=== PATIENT | male | born 1945 | race Caucasian/White ===

== ENCOUNTER 2022-05-06 19:37 | Inpatient (IN) | payer MEDICARE, SELFPAY ==
--- NOTE | 2022-05-06 19:42 | XRR_ITS ---
PROCEDURE INFORMATION: Exam: XR Chest Exam date and time: 05/06/2022 7:50 PM Age: 76 years old Clinical indication: Shortness of breath; Additional info: SOB TECHNIQUE: Imaging protocol: Radiologic exam of the chest. Views: 1 view. COMPARISON: No relevant prior studies available. FINDINGS: Lungs: Left lower lobe atelectasis versus minimal infiltrate. Pleural spaces: Unremarkable. No pleural effusion. No pneumothorax. Heart/Mediastinum: Unremarkable. No cardiomegaly. Bones/joints: Unremarkable. XR/XR chest 1V portable [id number] IMPRESSION: Left lower lobe atelectasis versus minimal infiltrate.
[2022-05-06 19:43] VITALS: BP 94/75; PULSE 162; RESP 29; TEMP 39.3; O2SAT 95; BMI 23.6
--- NOTE | 2022-05-06 19:43 | ECG_ITS ---
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 Measurements Intervals [place] Rate: 157 P: [place]: QRS: -56 QRSD: 106 T: 54 QT: 265 QTc: 429 Interpretive Statements ATRIAL FIBRILLATION WITH RAPID VENTRICULAR RESPONSE LEFT AXIS DEVIATION [QRS AXIS < -30] NONSPECIFIC ST & T-WAVE ABNORMALITY No previous ECG available for comparison Electronically Signed On 05-07-2022 16:26:19 CDT by Magaly Fuentes M.D. [email or web address]/[email or web address]/NU/[id number] f
--- NOTE | 2022-05-06 19:44 | W.ED.SOB ---
HPI - SOB/Dyspnea General: Chief Complaint: Arrhythmia/Palpitations Stated Complaint: AFIB WITH RVR Time Seen by Provider: 05/06/22 19:42 Source: patient and EMS Mode of arrival: EMS Limitations: no limitations History of Present Illness: HPI Narrative: 76-year-old male comes by EMS. Per EMS patient's been feeling ill over the last 2 days has had extreme shortness of breath they are called and they arrived patient was febrile hypotensive and respiratory distress. Per EMS patient's pulse ox originally was in the 50s heart rate was in the 160s they have given him 20 mg of Cardizem. Patient's here tachypneic and shortness of breath. Patient is able to answer some of my questions but is quite dyspneic and only able to respond 1-2 word sentences. Associated symptoms: Reports fever(s) and palpitations; Deny abdominal pain, nausea or vomiting Review of Systems Const: Reports: fever(s) and chills Eyes: Denies: blurry vision or eye discomfort ENMT: Denies: throat pain or dental pain Card: Reports: palpitations and irregular heart rhythm Resp: Reports: dyspnea and non-productive cough GI: Denies: abdominal pain, nausea, vomiting or diarrhea : Denies: dysuria Musc: Denies: neck pain or back pain Skin/Breast: Denies: rash Neuro: Denies: headache(s) Psych: Denies: depression [place]/Lymph: Denies: easy bruising All/Imm: Denies: urticaria PFSH ED PFSH: Medical History (Updated 05/06/22 @ 19:45 by Erickson Almanza MD) No pertinent past medical history Social History (Updated 05/06/22 @ 19:45 by Erickson Almanza MD) Substance/Drug Use: never Physical Exam Const: COMMON NORMALS: patient oriented x3 GENERAL APPEARANCE: in distress and ill appearing HENMT: COMMON NORMALS: normocephalic and atraumatic HEAD & SCALP: normocephalic and atraumatic Eye: COMMON NORMALS: Equal, round and reactive pupils present and EOMs intact bilaterally PUPIL: Yes Equal, round and reactive pupils present Neck/C-Spine: COMMON NORMALS: full ROM and supple Chest: COMMONS NORMALS: normal inspection of the chest and normal palpation of entire chest wall Resp: EFFORT & INSPECTION: Yes tachypneic, Yes respiratory distress and Yes labored Cardio: COMMON NORMALS: No murmurs present (Cardio) RATE: tachycardic RHYTHM: abnormal rhythm irregularly irregular GI: COMMON NORMALS: Normal to inspection, nondistended, normoactive bowel sounds present, Soft to palpation, non-tender and no masses PALPATION: Yes Soft to palpation Extremity: COMMON NORMALS: normal to inspection and full ROM Neuro: COMMON NORMALS: patient oriented x3, moves all extremities and no focal motor deficits Psych: COMMON NORMALS: mental status grossly normal, Normal thought process present and cooperative THOUGHT PROCESS: Normal thought process present Skin: COMMON NORMALS: no rashes or lesions noted and no wounds GENERAL SKIN EXAM: no rashes or lesions noted Course Vital Signs: Vital signs: Vital Signs Temperature 102.8 F H 05/06/22 20:03 Pulse Rate 130 H 05/06/22 20:55 Respiratory Rate 28 H 05/06/22 20:55 Blood Pressure 131/92 05/06/22 20:55 Pulse Oximetry 98 05/06/22 20:55 Oxygen Delivery Me thod 05/06/22 20:55 Fraction of Inspir ed Oxygen 100 05/06/22 20:03 MDM - SOB/Dyspnea Medical Decision Making Patient presents here after being found down at home likely from a pneumonia he is septic from his pneumonia has rhabdomyolysis likely from being down. Patient's blood pressure here is improved with IV fluids did start him on antibiotics spoke to hospitalist will admit to ICU. Lab Data : 05/06/22 19:53 05/06/22 21:13 Labs/Radiology: Radiology Impressions Chest X-Ray 05/06/22 19:42 IMPRESSION: Left lower lobe atelectasis versus minimal infiltrate. Head CT 05/06/22 20:11 IMPRESSION: 1. Negative for intracranial hemorrhage or mass effect. 2. Mild diffuse white matter disease likely reflecting chronic microvascular ischemic changes. 3. Right occipital chronic infarct. Laboratory Results WBC 14.4 10^3/uL (4.0-10.0) H 05/06/22 19:53 RBC 3.51 10^6/uL (4.1-5.3) L 05/06/22 19:53 Hgb 12.1 g/dL (11.7-16.6) 05/06/22 19:53 Hct 39.0 % (42.0-52.0) L 05/06/22 19:53 MCV 111.1 fl (80-94) H 05/06/22 19:53 MCH 34.5 pg (28.0-34.0) H 05/06/22 19:53 MCHC 31.0 g/dL (30.0-36.0) 05/06/22 19:53 RDW 14.1 % (12.1-15.1) 05/06/22 19:53 Plt Count 122 10^3/cmm (130-400) L 05/06/22 19:53 MPV 10.9 fL (7.4-10.4) H 05/06/22 19:53 Lymph % (Auto) Not Reportable 05/06/22 19:53 [place] % (Auto) Not Reportable 05/06/22 19:53 Lymph # (Auto) Not Reportable 05/06/22 19:53 [place] # (Auto) Not Reportable 05/06/22 19:53 Total Counted 100 (0-100) 05/06/22 19:53 Atypical Lymphs % 0.0 % (0-5) 05/06/22 19:53 Absolute Neutrophils 12.4 10^3/cmm (1.4-6.5) H 05/06/22 19:53 Segmented Neutrophils 69 % 05/06/22 19:53 Abs Segm Neuts (Man) 9.9 10/cmm (1.6-7.1) H 05/06/22 19:53 Band Neutrophils 17.0 % 05/06/22 19:53 Abs Band Neuts (Man) 2.4 10^3/cmm (0.0-1.2) H 05/06/22 19:53 Absolute Lymphocytes 1.3 10^3/cmm (1.2-3.4) 05/06/22 19:53 Lymphocytes (Manual) 9 % 05/06/22 19:53 Monocytes (Manual) 1.0 % 05/06/22 19:53 Absolute Monocytes 0.1 10^3/cmm (0.1-0.6) 05/06/22 19:53 Eosinophils (Manual) 0 % 05/06/22 19:53 Absolute Eosinophils 0.0 10^3/cmm (0.0-0.7) 05/06/22 19:53 Basophils (Manual) 0.0 % 05/06/22 19:53 Absolute Basophils 0.0 10^3/cmm (0.0-0.2) 05/06/22 19:53 Metamyelocytes 4.0 % 05/06/22 19:53 Toxic Vacuolation 2+ H 05/06/22 19:53 Platelet Estimate Decreased (Normal) 05/06/22 19:53 Giant Platelets 1+ H 05/06/22 19:53 Anisocytosis 1+ H 05/06/22 19:53 Macrocytosis 2+ H 05/06/22 19:53 PT 20.00 SECONDS (12.1-14.9) H 05/06/22 19:53 INR 1.67 (0.8-1.2) H 05/06/22 19:53 Specimen Type Arterial 05/06/22 19:48 Sample Site Brachial, right 05/06/22 19:48 ABG pH 7.32 (7.35-7.45) L 05/06/22 19:48 ABG pCO2 25.8 mmHg (35-45) L 05/06/22 19:48 ABG pO2 137.0 mmHg (80.0-100.0) H 05/06/22 19:48 ABG HCO3 13.2 mmol/L (22-26) L 05/06/22 19:48 ABG Base Excess -11.4 mmol/L (-2.0-2.0) L 05/06/22 19:48 Taiwo Test Pos 05/06/22 19:48 Hematocrit 38.0 % (42-52) L 05/06/22 19:48 O2 Delivery Device Nrb 05/06/22 19:48 O2 Liters/Min 15.0 % 05/06/22 19:48 Plastic Press Operator ID [place] 05/06/22 19:48 Sodium Cancelled 05/06/22 19:53 Potassium Cancelled 05/06/22 19:53 Chloride Cancelled 05/06/22 19:53 Carbon Dioxide Cancelled 05/06/22 19:53 Anion Gap Cancelled 05/06/22 19:53 BUN Cancelled 05/06/22 19:53 Creatinine Cancelled 05/06/22 19:53 GFR Calculation Cancelled 05/06/22 19:53 Glucose Cancelled 05/06/22 19:53 Calculated Osmolality Cancelled 05/06/22 19:53 Lactic Acid 11.3 mmol/L (0.5-2.2) H* 05/06/22 19:53 Calcium Cancelled 05/06/22 19:53 Total Bilirubin Cancelled 05/06/22 19:53 AST Cancelled 05/06/22 19:53 ALT Cancelled 05/06/22 19:53 Alkaline Phosphatase Cancelled 05/06/22 19:53 Creatine Kinase 9953 U/L (39-308) H* 05/06/22 19:53 Troponin T Baseline 68 ng/L (0-15) H 05/06/22 19:53 Troponin T 120 Minute 77.65 ng/L (0-15) H 05/06/22 21:13 Delta Troponin T 9.65 ABS# (0-10) 05/06/22 21:13 NT-Pro-B Natriuret Pep Cancelled 05/06/22 19:53 Total Protein Cancelled 05/06/22 19:53 Albumin Cancelled 05/06/22 19:53 Globulin Cancelled 05/06/22 19:53 Urine Color [place] (Yellow) 05/06/22 20:00 Urine Appearance Cloudy (CLEAR) 05/06/22 20:00 Urine pH 5 (5-7) 05/06/22 20:00 Ur Specific [place] 1.025 (1.005-1.030) 05/06/22 20:00 Urine Protein 2+ (Negative) H 05/06/22 20:00 Urine Glucose (UA) Norm (Normal) 05/06/22 20:00 Urine Ketones Negative (Negative) 05/06/22 20:00 Urine Blood 3+ (Negative) H 05/06/22 20:00 Urine Nitrate Negative (Negative) 05/06/22 20:00 Urine Bilirubin 1+ (Negative) H 05/06/22 20:00 Urine Urobilinogen 4 mg/dL (Negative) H 05/06/22 20:00 Ur Leukocyte Esterase Negative (Negative) 05/06/22 20:00 Urine RBC 10-15 /hpf (0-2) H 05/06/22 20:00 Urine WBC 0-4 /hpf (0-5) H 05/06/22 20:00 Ur Squamous Epith Cells 0-4 /hpf (0-5) H 05/06/22 20:00 Ur Renal Epithelial Cell 0-2 /hpf 05/06/22 20:00 Amorphous Sediment 3+ /hpf 05/06/22 20:00 Urine Bacteria None /hpf (NONE) 05/06/22 20:00 Fine Granular Casts 0-4 /lpf H 05/06/22 20:00 SARS-CoV-2 Ag (Rapid) Negative (Negative) 05/06/22 19:50 EKG Data EKG 1: I personally reviewed and interpreted this EKG as follows: EKG Interpretation Date: 05/06/22 EKG interpretation time: 19:41 Interpretation: afib with rvr hr [address] or t wave abnrmalities qrs 106 qtc 353 Critical Care Time Critical Care Time: Critical Care Time: Yes Total Critical Care Time: 40 Attestation: The high probability of a clinically significant, sudden or life threatening deterioration of the patient's resp system(s) required my full and direct attention, intervention and personal management. The critical care time is as shown. This time is in addition to time spent performing any reported procedures but includes the following: [x] Data and vital sign review and interpretation [x] Patient assessment, examination and intervention [x] Documentation [x] Medication orders and management Discharge Plan Discharge Patient Disposition: Admitted As Inpatient Admit Provider: Louie Galicia Coding Level of Care Code ED Night Time Nanny for Chg Fwd Exam Comprehensive
[2022-05-06 19:59] LABS: ABG PCO2 25.8 mmHg (35-45); ABG PH Result 7.32 (7.35-7.45); Base Excess ABG -11.4 mmol/L (-2.0-2.0); Blood Gas Allen Test Pos; Blood Gas Operator Identificat WALCI; Blood Gas Sample Site Brachial, right; Blood Gas Sample Type Arterial; HCO3 ABG 13.2 mmol/L (22-26); Oxygen Device NRB
[2022-05-06] MEDS: acetaminophen 650 mg Supp PR (19:59)
[2022-05-06] MEDS: piperacillin-tazobactam 3.375 GM in sodium chloride 0.9% (plus) 50 ML IV (20:00)
[2022-05-06 20:03] VITALS: BP 94/75; PULSE 162; RESP 29; RESP 43; TEMP 39.3; O2SAT 100; O2SAT 95
[2022-05-06 20:10] LABS: Hemoglobin 12.1 g/dL (11.7-16.6); Mean Corpuscular Hemoglobin 34.5 pg (28.0-34.0); Mean Corpuscular Volume 111.1 fl (80-94); Mean Platelet Volume 10.9 fL (7.4-10.4); Platelet Count 122 10^3/cmm (130-400); Positive C 1; Positive M 1; Red Blood Count 3.51 10^6/uL (4.1-5.3); Red Cell Distribution Width 14.1 % (12.1-15.1); White Blood Count 14.4 10^3/uL (4.0-10.0)
--- NOTE | 2022-05-06 20:11 | CTR_ITS ---
PROCEDURE INFORMATION: Exam: CT Head Without Contrast Exam date and time: 05/06/2022 8:30 PM Age: 76 years old Clinical indication: Altered mental status/memory loss; Patient HX: Patient found unresponsive by family. Patient in afib with rvr and very hypoxic. Acting confused. On bipap. ; Additional info: AMS TECHNIQUE: Imaging protocol: Computed tomography of the head without contrast. Radiation optimization: All CT scans at this facility use at least one of these dose optimization techniques: automated exposure control; mA and/or kV adjustment per patient size (includes targeted exams where dose is matched to clinical indication); or iterative reconstruction. COMPARISON: No relevant prior studies available. RADIATION DOSE METRICS: Total DLP (mGy-cm): 1526.08 FINDINGS: Brain: Mild diffuse white matter disease likely reflecting chronic microvascular ischemic changes. Right occipital chronic infarct. Cerebral ventricles: No ventriculomegaly. Paranasal sinuses: Visualized sinuses are unremarkable. No fluid levels. Mastoid air cells: Visualized mastoid air cells are well aerated. Bones/joints: Unremarkable. No acute fracture. Soft tissues: Unremarkable. CT/CT head wo con* [id number] IMPRESSION: 1. Negative for intracranial hemorrhage or mass effect. 2. Mild diffuse white matter disease likely reflecting chronic microvascular ischemic changes. 3. Right occipital chronic infarct.
[2022-05-06] MEDS: vancomycin 1,000 MG in sodium chloride 0.9% 250 ML 250 MG IV (20:12)
[2022-05-06] MEDS: lactated ringers 1,000 ML 999 ML IV ×3 (20:13→23:37)
[2022-05-06 20:18] LABS: SARS Covid-2 Antigen Negative (Negative)
[2022-05-06 20:20] LABS: INR 1.67 (0.8-1.2)
[2022-05-06 20:31] LABS: Bilirubin Urine 1+ (Negative); Blood Urine 3+ (Negative); Glucose Urine UA Norm (Normal); Ketones Urine Negative (Negative); Leukocyte Esterase Urine Negative (Negative); Nitrate Urine Negative (Negative); Protein Urine 2+ (Negative); Specific Gravity, Urine 1.025 (1.005-1.030); Urine Appearance Cloudy (CLEAR); Urine Color Orange (Yellow); Urobilinogen Urine 4 mg/dL (Negative); pH Urine 5 (5-7)
[2022-05-06 20:32] LABS: Add Urine Microscopic? YES
[2022-05-06 20:33] LABS: Renal Epithelial Cells Urine 0-2 /hpf; Squamous Epithelial Cell Urine 0-4 /hpf (0-5); WBC Urine 0-4 /hpf (0-5)
[2022-05-06 20:34] LABS: Amorphous Sediment Urine 3+ /hpf
[2022-05-06 20:35] LABS: Fine Granular Casts Urine 0-4 /lpf
[2022-05-06 20:37] LABS: Lactic Sepsis W/Reflex 11.3 mmol/L (0.5-2.2)
[2022-05-06 20:55] VITALS: BP 131/92; PULSE 130; RESP 28; O2SAT 98
[2022-05-06 20:56] LABS: Absolute Segmented Neutrophil 9.9 10/cmm (1.6-7.1); Band Neutrophils Absolute 2.4 10^3/cmm (0.0-1.2); Lymphocytes 9 %; Monocytes Absolute 0.1 10^3/cmm (0.1-0.6); Segmented Neutrophils 69 %; Total Cells Counted 100 (0-100)
[2022-05-06 20:57] LABS: Anisocytosis 1+; Macrocytosis 2+
[2022-05-06 20:59] LABS: Absolute Neutrophil 12.4 10^3/cmm (1.4-6.5)
[2022-05-06 21:01] LABS: Eosinophils 0 %; Giant Platelets 1+; Lymphocytes Absolute 1.3 10^3/cmm (1.2-3.4); Toxic Vacuolation 2+
[2022-05-06 21:02] LABS: Platelet Estimate Decreased (Normal)
--- NOTE | 2022-05-06 21:26 | ECG_ITS ---
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 Measurements Intervals [place] Rate: 155 P: [place]: QRS: -70 QRSD: 102 T: 59 QT: 310 QTc: 499 Interpretive Statements ATRIAL FIBRILLATION WITH RAPID VENTRICULAR RESPONSE LEFT AXIS DEVIATION [QRS AXIS < -30] LOW QRS VOLTAGE IN EXTREMITY LEADS No previous ECG available for comparison Electronically Signed On 05-07-2022 16:33:52 CDT by Magaly Fuentes M.D. [id number]
[2022-05-06 21:27] LABS: Troponin(5th) Baseline 68 ng/L (0-15)
[2022-05-06 21:41] LABS: Troponin 5 2HR 77.65 ng/L (0-15); Troponin 5 2HR Delta 9.65 ABS# (0-10)
[2022-05-06 21:47] LABS: Alanine Aminotransferase 155 U/L (0-41); Albumin Level 2.5 g/dL (3.5-5.2); Alkaline Phosphatase 238 U/L (40-130); Anion Gap 28.9 (5-19); Aspartate Amino Transferase 443 U/L (0-40); Blood Urea Nitrogen 41 mg/dL (8-23); Calcium 7.6 mg/dL (8.5-10.5); Carbon Dioxide 13 mmol/L (22-29); Chloride 105 mmol/L (98-107); Globulin 2.5 g/dL (1.3-4.6); Glucose 67 mg/dL (65-115); Osmolality Calculated 304 mOsm/kg (285-295); Potassium 3.9 mmol/L (3.5-5.1); Sodium 143 mmol/L (136-145); Total Bilirubin 1.3 mg/dL (0.15-1.2)
[2022-05-06 21:51] LABS: Reflex Lactate Order REFLEX LACTIC ORDERD
[2022-05-06 21:55] LABS: NT Pro B Type Natriuretic Pept 44685 pg/mL (0-450)
[2022-05-06 21:57] LABS: Creatine Phosphokinase 9953 U/L (39-308)
[2022-05-06 22:03] VITALS: BP 140/71; PULSE 135; RESP 24; O2SAT 97
--- NOTE | 2022-05-06 22:27 | CTR_ITS ---
PROCEDURE INFORMATION: Exam: CT Chest Without Contrast; Diagnostic Exam date and time: 05/06/2022 11:15 PM Age: 76 years old Clinical indication: Abnormal findings; Other: N/a; Shortness of breath; Patient HX: Lethargy with SOB and hypoxia requiring bipap. Multiple abnormal lab tests with elevated wbc. Lactic acid of 11.3, ck of 9953, and bnp of 44k. TECHNIQUE: Imaging protocol: Diagnostic computed tomography of the chest without contrast. Radiation optimization: All CT scans at this facility use at least one of these dose optimization techniques: automated exposure control; mA and/or kV adjustment per patient size (includes targeted exams where dose is matched to clinical indication); or iterative reconstruction. COMPARISON: CR (CHEST, ) 05/06/2022 7:50 PM RADIATION DOSE METRICS: Total DLP (mGy-cm): 1236.95 FINDINGS: Lungs: Bibasilar atelectasis versus infiltrate. Pleural spaces: Unremarkable. No pneumothorax. No pleural effusion. Heart: Unremarkable. No cardiomegaly. No pericardial effusion. Lymph nodes: Unremarkable. No enlarged lymph nodes. Vasculature: Unremarkable. No aortic aneurysm. Bones/joints: Unremarkable. No acute fracture. Soft tissues: Unremarkable. PROCEDURE INFORMATION: Exam: CT Abdomen And Pelvis Without Contrast Exam date and time: 05/06/2022 11:15 PM Age: 76 years old Clinical indication: Abnormal findings; Other: N/a; Shortness of breath; Patient HX: Lethargy with SOB and hypoxia requiring bipap. Multiple abnormal lab tests with elevated wbc. Lactic acid of 11.3, ck of 9953, and bnp of 44k. TECHNIQUE: Imaging protocol: Computed tomography of the abdomen and pelvis without contrast. Radiation optimization: All CT scans at this facility use at least one of these dose optimization techniques: automated exposure control; mA and/or kV adjustment per patient size (includes targeted exams where dose is matched to clinical indication); or iterative reconstruction. COMPARISON: CR (CHEST, ) 05/06/2022 7:50 PM RADIATION DOSE METRICS: Total DLP (mGy-cm): 1236.95 FINDINGS: Liver: Normal. No mass. Gallbladder and bile ducts: Normal. No calcified stones. No ductal dilation. Pancreas: Normal. No ductal dilation. Spleen: Normal. No splenomegaly. Adrenal glands: Normal. No mass. Kidneys and ureters: Perinephric edema bilaterally may reflect chronic renal insufficiency, pyelonephritis may also be a consideration depending on the clinical scenario. Stomach and bowel: Diverticulosis without diverticulitis. Appendix: No evidence of appendicitis. Intraperitoneal space: Unremarkable. No free air. No significant fluid collection. Vasculature: Unremarkable. No abdominal aortic aneurysm. Lymph nodes: Unremarkable. No enlarged lymph nodes. Urinary bladder: Carlton catheter in the urinary bladder with air presumed iatrogenic. Reproductive: Unremarkable as visualized. Bones/joints: Unremarkable. No acute fracture. Soft tissues: Unremarkable. CT/[place] [id number] IMPRESSION: Bibasilar atelectasis versus infiltrate. IMPRESSION: 1. Perinephric edema bilaterally may reflect chronic renal insufficiency, pyelonephritis may also be a consideration depending on the clinical scenario. 2. Diverticulosis without diverticulitis. 3. Carlton catheter in the urinary bladder with air presumed iatrogenic.
--- NOTE | 2022-05-06 22:57 | PM.HP ---
Providers/Chief Complaint Admitting Physician: Louie Galicia MD Chief Complaint: AFIB WITH RVR History of Present Illness Fidel Guevara is a 76 year old male with a past medical history of atrial fibrillation not on anticoagulation due to GI bleed, history of GI bleed, who presents [facility] due to altered mental status, being found down by family members at home. Currently patient is alert, not to place, not to time, not to person, he does not follow commands, blood pressure 140/70, heart rates in the 130s atrial fibrillation respiratory 20, temp 1 and 2.8, on 75% BiPAP, patient's son is at bedside. 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 He had a hospitalization roughly a year ago due to GI bleed. Patient has not been feeling well for the last 2 days according to family members, he has been ill, shortness of breath. Patient's family had not heard for him in about 12 to 24 hours, EMS was called out to his home, his pulse ox O2 sats were in the low 50s, heart rates in the 160s, he was tachypneic, short of breath, dyspneic. Review of Systems General: Reports: ROS unobtainable due to mental status PFSH Acute PFSH: Medical History (Updated 05/06/22 @ 23:05 by Louie Galicia MD) History of atrial fibrillation History of GI bleed No pertinent past medical history Surgical History (Updated 05/06/22 @ 23:01 by Louie Galiica MD) No pertinent past surgical history Social History (Updated 05/06/22 @ 23:01 by Louie Galicia MD) Smoking and tobacco status: never smoked Alcohol intake: never Substance/Drug Use: never Vitals/I&O/Wt Last Vital Signs Temp 102.8 F H 05/06/22 20:03 Pulse 135 H 05/06/22 22:03 Resp 24 H 05/06/22 22:03 BP 140/71 05/06/22 22:03 Pulse Ox 97 05/06/22 22:03 O2 Del Method 05/06/22 22:03 FiO2 100 05/06/22 20:03 05/06/22 05/06/22 05/06/22 06:59 14:59 22:59 Intake Total 1300 / 1300 Balance 1300 / 1300 Weight last 48 hrs Weight 72.575 kg Physical Exam Const: COMMON NORMALS: no acute distress EXAM LIMITATIONS: altered mental status ORIENTATION/CONSCIOUSNESS: Yes awake and Yes confused; not oriented to person, not oriented to place and not oriented to time OTHER: Pale appearing, bluish hue to bilateral extremities, upper and lower, mottling up to the level of the abdomen, bluish discoloration of both ears, neck, nose HENMT: COMMON NORMALS: normocephalic HEAD & SCALP: normocephalic Eye: COMMON NORMALS: Equal, round and reactive pupils present Neck/C-Spine: COMMON NORMALS: no JVD Resp: COMMON NORMALS: normal respiratory effort, No retractions, No use of accessory muscles and clear to auscultation bilaterally AUSCULTATION: clear to auscultation bilaterally Cardio: COMMON NORMALS: no JVD, S1 normal heart sound present and S2 normal heart sound present RATE: tachycardic RHYTHM: abnormal rhythm irregularly irregular HEART SOUNDS: S1 normal heart sound present and S2 normal heart sound present GI: COMMON NORMALS: Normal to inspection, nondistended, normoactive bowel sounds present, Soft to palpation, non-tender, No hepatosplenomegaly present, no masses and no bruits PALPATION: Yes Soft to palpation Extremity: COMMON NORMALS: no calf tenderness and no pedal edema Neuro: OTHER: Does not follow neurologic testing, does not follow commands Urinary Catheter Management: Carlton: Cath Placed During This Visit: yes Urinary Catheter Date of Insertion: 05/06/22 Urinary Catheter Time of Insertion: 20:03 Data : 05/06/22 19:53 05/06/22 21:13 Micro: Microbiology 05/06/22 19:53 Blood Culture - Preliminary Blood SPECIMEN COLLECTED 05/06/22 19:53 Blood Culture - Preliminary Blood SPECIMEN COLLECTED A&P Assessment and plan (1) Acute respiratory failure with hypoxia: Status: Acute (2) Lactic acidosis: Status: Acute (3) Shock liver: Status: Acute (4) Acute renal failure: Status: Acute (5) Rhabdomyolysis: Status: Acute (6) Acute encephalopathy: Status: Acute (7) Elevated INR: Status: Acute (8) NSTEMI (non-ST elevated myocardial infarction): Status: Acute (9) History of CVA (cerebrovascular accident): Status: Acute Plan Acute hypoxic respiratory failure -Likely secondary to pneumonia -Patient does have elevated BNP over 40,000 however no clinical evidence of fluid overload, nor does he have a reported history of CHF by family members Plan -Patient's DNR/DNI, confirmed with this patient's son at bedside multiple times -Continue BiPAP -Continue vancomycin, Zosyn -Monitor respiratory status closely -CT chest abdomen pelvis -DuoNebs, budesonide -Serum cortisol, TSH -DNR/DNI -Lovenox for DVT prophylaxis, monitor hemoglobin closely has a history of GI bleed Severe sepsis -Secondary to pneumonia, sepsis criteria met due to tachycardia, afebrile, source of infection, lactic acidosis Lactic acidosis due to severe sepsis from pneumonia Metabolic acidosis, will give 1 amp of bicarb A. fib with RVR, likely secondary to sepsis, placed on Cardizem drip NSTEMI -Serial EKGs, serial troponins, telemetry monitoring cardiac echo Elevated INR, likely features of DIC, monitor closely Acute renal failure, no known kidney disease, likely secondary to rhabdomyolysis secondary to be down on the floor -Gentle IV hydration monitor urine output, Carlton catheter placed -Patient's family is agreeable to dialysis if required Shock liver secondary to sepsis, monitor Acute encephalopathy, secondary respiratory failure, sepsis, lactic acidosis, metabolic acidosis -However the etiology of patient being found on the floor is unclear -There is the potential for him to have a CVA, as he has a history of atrial fibrillation on anticoagulation presumably due to GI bleed, and a CT of his head showed a right occipital stroke, etiology and timeframe unknown, but family was unaware of this -NIH stroke scale, neurochecks, aspiration precautions -IV fluids -Aspirin, statin contraindicated given rhabdomyolysis Attestations Medical Necessity Statement*: Patient requires hospitalization for acute hypoxic respiratory failure secondary to pneumonia, multiorgan failure, NSTEMI, CHF, acute renal failure, lactic acidosis Coding Level of Care Code Acute Line Ordering Clinician for [facility] Diagnoses Acute respiratory failure with hypoxia J96.01 Lactic acidosis E87.2 Shock liver K72.00 Acute renal failure N17.9 Rhabdomyolysis M62.82 Acute encephalopathy G93.40 Elevated INR R79.1 NSTEMI (non-ST elevated myocardial infarction) I21.4 History of CVA (cerebrovascular accident) Z86.73 Sepsis Event Note Evaluation Current stage of sepsis: severe sepsis Reason for ruling out sepsis: Patient has severe sepsis Initial hypotension due to sepsis/infection: SBP < 90 mmHg Possible source: pulmonary Focused Exam Vital Signs Temp Pulse Resp BP Pulse Ox O2 Del Method FiO2 05/06/22 22:03 135 H 24 H 140/71 97 BiPAP 05/06/22 20:55 130 H 28 H 131/92 98 BiPAP 05/06/22 20:03 100 100 05/06/22 20:03 102.8 F H 162 H 29 H 94/75 95 Nasal Cannula 05/06/22 19:43 102.8 F H 162 H 29 H 94/75 95 Nasal Cannula Cardiovascular exam: Present tachycardia and irregular rhythm Capillary refill: > 3 Seconds Peripheral pulse strength: 1+ Faint Peripheral pulse location: Posterior Tibial Skin exam: pale and mottling Date exam was performed: 05/06/22 Time exam was performed: 23:04 Problem List (1) Acute respiratory failure with hypoxia: Status: Acute (2) Lactic acidosis: Status: Acute (3) Shock liver: Status: Acute (4) Acute renal failure: Status: Acute (5) Rhabdomyolysis: Status: Acute (6) Acute encephalopathy: Status: Acute (7) Elevated INR: Status: Acute (8) NSTEMI (non-ST elevated myocardial infarction): Status: Acute (9) History of CVA (cerebrovascular accident): Status: Acute
[2022-05-06 23:35] VITALS: BP 115/70; PULSE 135; RESP 24; O2SAT 97
[2022-05-06] MEDS: sodium bicarbonate 8.4% 1 mEq/mL 50mL Syr 50 MEQ IVP (23:42)
[2022-05-06 23:45] LABS: Glucose Point of Care 90 mg/dL (70-110)
[2022-05-06] MEDS: pantoprazole 40 mg SDV IVP (23:46)
--- NOTE | 2022-05-06 23:53 | PC.PHAR ---
Pharmacokinetic dosing service Date: 05/06/22 Time: 2353 Objective: Patient: Fidel Guevara Floor: ICU-3 Age: 76 yo Serum creatinine: 3.9 mg/dL Height: 69.0 Inches Weight (kg): 72.575 Diagnosis: Relevant medical/social history: Cultures and sensitivities: Other labs: Assessment: IBW (kg): 70.70 Dosing wt(kg): 72.575 Estimated Creatinine clearance (ml/min): 16.4 CRCL method: Cockcroft and Gault using ibw(default). Drug selected: Vancomycin Loading dose (mg): 0 Vd (liters): 65.3 (factor used: 0.9 L/kg) Vincent (hr-1): 0.018 Half life (hrs): 38.51 Recommended dose: 1250 mg Interval: 48 hrs Infusion time (hrs): 1.5 Predicted peak (mcg/mL): 32.6 Predicted trough (mcg/mL): 14.12 Total body weight is being used for vancomycin dosing. Renal function is stable [ ] /unstable [ ] Recommendations: Give Vancomycin 1250 mg q 48 hrs with an expected Cpeak of 32.6 mcg/ml and an expected Ctrough of 14.12 mcg/ml Renal dosing of other antibiotics (review renal dosing of other medications and list guidelines here): Thank you for the consult, will continue to follow. Signature: Kaitlynn Hawkins [facility]
[2022-05-06] MEDS: sodium chloride 0.9% 1,000 ML 75 ML IV (23:54)
[2022-05-07] VITALS: BP 79/46; PULSE 126; RESP 33; TEMP 37.6; O2SAT 98
[2022-05-07] MEDS: enoxaparin 40 mg/0.4 mL Syringe SUBCUT (00:39)
[2022-05-07 01:22] VITALS: RESP 36
[2022-05-07] MEDS: morphine 4 mg/mL SDV 1 mL 1 MG IVP (01:22)
[2022-05-07 01:25] VITALS: RESP 36; O2SAT 71
[2022-05-07] MEDS: LORazepam 2 mg/mL INJ 1 mL 1 MG IVP (01:37)
--- NOTE | 2022-05-07 01:38 | P.PNCC_ITS ---
Critical Care Event Note The high probability of a clinically significant, sudden or life threatening deterioration of the patient's [] system(s) required my full and direct attention, intervention and personal management. The critical care time is as shown. 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 Currently his O2 saturation is 100% BiPAP is in the low 70s, dropping into the low 60s, blood pressures MAP less than 65, last blood pressure 50/40, he is on maximum dose Levophed currently increased to 50 Levophed, maximum dose vasopressin, remains an uric, tachycardic, family is at bedside, patient's daughter is at bedside, I discussed that currently patient has multiorgan failure, acute renal failure, shock shock liver, lactic acidosis, acute respiratory failure, not responding to BiPAP therapy, hypotensive, septic shock. I confirmed that it was patient's wishes to remain a DNR/DNI, and family tells me that he has since this is his wish. I advised that we could try to intubate him to see if we can improve his oxygenation protect his airway, improv e his blood pressures as hypoxia proves however patient's family declines as that was not his wish. I advised patient's family that given his profound hypotension, and his profound hypoxia, there is significant anoxic brain injury concerns, multiorgan failure, and the likelihood of meaningful recovery is fairly unlikely. Options I presented to family is to continue medical interventions continue BiPAP, continue pressors, and try to optimize however I think that the likelihood of him having a meaningful recovery on noninvasive interventions as you are currently are fairly unlikely. Versus making him comfortable easing his pain easing his suffering allowing him to pass away comfortably. Patient's daughter and family member voiced understanding, all questions answered, they voiced understanding opportunity to answer questions, nurses present at bedside. Patient's daughter spoke to her brother, after family discussion they want to proceed with comfort care. I discussed comfort care in detail with patient's family, they voiced assent, all questions answered, agreed to proceed with comfort care. Patient was made comfort care Coding Level of Care Code Acute Predatory Animal Trapper for Bebe Briggs
--- NOTE | 2022-05-07 02:37 | PC.NURSE ---
2329 -- Arrived to ICU from ED via stretcher, Bipap in place at 85% FIO2. Blood pressure 68/53(58), heart rate 133 in A-fib, respiratory rate 33 and unable to obtain an oxygen saturation related to ringers cold and mottled. Face and chest mottled. Patient minimally responsive and moving arms spontaneously. 4th liter of LR started as ordered. 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 Galicia of low blood pressure and current status. Orders given for Levophed, Cardizem, Neosynephrine. 0000 -- Son and daughter at bedside, educated and updated on current plan of care and patient condition. 0017 -- Blood pressure 161/75, Heart rate 127 and remains in A-fib. Patient less responsive that on admit. 0047 -- Skin becomes more mottled and patient unresponsive. Blood pressure 55/36, oxygen saturation 91%. Family remains at bedside. 0055 -- Unable to obtain blood pressure, heart rate 111 doppler radial pulse obtained, 1/3 of the electric impulses conducted. Dr. Galicia to bedside and patient assessed. Spoke with family and decision to make patient a comfort care patient made. 0122 -- Morphine 1mg given IV for comfort. Bipap removed and placed on Oxygen at 2L NC for comfort per family request. 0137 -- Family remains at bedside, 1mg Ativan given IVP for comfort. 0146 -- No audible heart tones, No blood pressure, No palpable pulse, No spontaneous respirations noted. Asystole noted in all leads on potline monitor. Time of 0146. 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 Galicia and smokehouse operator. Family remains at bedside. 0155 -- Notified [facility] of . Referral number [id number].
--- NOTE | 2022-05-07 03:08 | PC.NURSE ---
MTS called back, further questions answered.
--- NOTE | 2022-05-07 03:09 | PC.NURSE ---
Vanessa called back and notified that patient is not a candidate for donation but information will be forwarded to [facility].
--- NOTE | 2022-05-07 03:19 | PC.NURSE ---
Laura Osborne called to notify that patient is not a candidate for donation and we can release the body to the home.
--- NOTE | 2022-05-07 04:33 | PM.DDS ---
Discharge Providers DDS Date of Admission: 05/06/22 23:34 Date Summary Completed: 05/07/22 Attending Provider at Admission: Louie Galicia MD Time of : :46 Attending Provider at Discharge: Louie Galicia MD DS Diagnoses Hospital Diagnoses (1) Acute respiratory failure with hypoxia: (2) Lactic acidosis: (3) Shock liver: (4) Acute renal failure: (5) Rhabdomyolysis: (6) Acute encephalopathy: (7) Elevated INR: (8) NSTEMI (non-ST elevated myocardial infarction): (9) History of CVA (cerebrovascular accident): Reason for Visit Reason for Visit AFIB WITH RVR Summary Date and Time of Date of : 05/07/22 Time of : :46 Summary Summary: Fidel Guevara is a 76 year old male with a past medical history of atrial fibrillation not on anticoagulation due to GI bleed, history of GI bleed, who presents [facility] due to altered mental status, being found down by family members at home.? Currently patient is alert, not to place, not to time, not to person, he does not follow commands, blood pressure 140/70, heart rates in the 130s atrial fibrillation respiratory 20, temp 1 and 2.8, on 75% BiPAP, patient's son is at bedside.? 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 He had a hospitalization roughly a year ago due to GI bleed.? Patient has not been feeling well for the last 2 days according to family members, he has been ill, shortness of breath.? Patient's family had not heard for him in about 12 to 24 hours, EMS was called out to his home, his pulse ox O2 sats were in the low 50s, heart rates in the 160s, he was tachypneic, short of breath, dyspneic. Acute hypoxic respiratory failure -Likely secondary to pneumonia -Patient does have elevated BNP over 40,000 however no clinical evidence of fluid overload, nor does he have a reported history of CHF by family members Plan -Patient's DNR/DNI, confirmed with this patient's son at bedside multiple times -Continue BiPAP -Continue vancomycin, Zosyn -Monitor respiratory status closely -CT chest abdomen pelvis -DuoNederrick budesonide -Serum cortisol, TSH -DNR/DNI -Lovenox for DVT prophylaxis, monitor hemoglobin closely has a history of GI bleed Severe sepsis -Secondary to pneumonia, sepsis criteria met due to tachycardia, afebrile, source of infection, lactic acidosis Lactic acidosis due to severe sepsis from pneumonia Metabolic acidosis, will give 1 amp of bicarb A. fib with RVR, likely secondary to sepsis, placed on Cardizem drip NSTEMI -Serial EKGs, serial troponins, telemetry monitoring cardiac echo Elevated INR, likely features of DIC, monitor closely Acute renal failure, no known kidney disease, likely secondary to rhabdomyolysis secondary to be down on the floor -Gentle IV hydration monitor urine output, Carlton catheter placed -Patient's family is agreeable to dialysis if required Shock liver secondary to sepsis, monitor Acute encephalopathy, secondary respiratory failure, sepsis, lactic acidosis, metabolic acidosis -However the etiology of patient being found on the floor is unclear -There is the potential for him to have a CVA, as he has a history of atrial fibrillation on anticoagulation presumably due to GI bleed, and a CT of his head showed a right occipital stroke, etiology and timeframe unknown, but family was unaware of this -NIH stroke scale, neurochecks, aspiration precautions -IV fluids -Aspirin, statin contraindicated given rhabdomyolysis 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 Currently his O2 saturation is 100% BiPAP is in the low 70s, dropping into the low 60s, blood pressures MAP less than 65, last blood pressure 50/40, he is on maximum dose Levophed currently increased to 50 Levophed, maximum dose vasopressin, remains an uric, tachycardic, family is at bedside, patient's daughter is at bedside, I discussed that currently patient has multiorgan failure, acute renal failure, shock shock liver, lactic acidosis, acute respiratory failure, not responding to BiPAP therapy, hypotensive, septic shock.? I confirmed that it was patient's wishes to remain a DNR/DNI, and family tells me that he has since this is his wish.? I advised that we could try to intubate him to see if we can improve his oxygenation protect his airway, improve his blood pressures as hypoxia proves however patient's family declines as that was not his wish.? I advised patient's family that given his profound hypotension, and his profound hypoxia, there is significant anoxic brain injury concerns, multiorgan failure, and the likelihood of meaningful recovery is fairly unlikely.? Options I presented to family is to continue medical interventions continue BiPAP, continue pressors, and try to optimize however I think that the likelihood of him having a meaningful recovery on noninvasive interventions as you are currently are fairly unlikely.? Versus making him comfortable easing his pain easing his suffering allowing him to pass away comfortably.? Patient's daughter and family member voiced understanding, all questions answered, they voiced understanding opportunity to answer questions, nurses present at bedside.? Patient's daughter spoke to her brother, after family discussion they want to proceed with comfort care.? I discussed comfort care in detail with patient's family, they voiced assent, all questions answered, agreed to proceed with comfort care.? Patient was made comfort care Time of 1:46 AM 05/07/2022 Additional Data Confirmation of as documented by pronouncing clinician: no pulse, no respirations and no heart sounds Family: at bedside Additional persons at bedside: nursing staff Attending/PCP notified?: I am attending Was code activated?: No Autopsy requested?: No Advance directives?: No Discharge Plan Discharge Patient Disposition: Probable Cause of Probable cause of : Cardiac arrest DS Attestations Time Spent in /Discharge Care*: greater than 30 min Quality - AMI: AMI present?: No Quality - Stroke: CVA present?: No Quality - VTE: VTE present?: No Coding Level of Care Code Acute Installer Helper for Pitag Fwd Diagnoses Acute respiratory failure with hypoxia J96.01 Lactic acidosis E87.2 Shock liver K72.00 Acute renal failure N17.9 Rhabdomyolysis M62.82 Acute encephalopathy G93.40 Elevated INR R79.1 NSTEMI (non-ST elevated myocardial infarction) I21.4 History of CVA (cerebrovascular accident) Z86.73
--- NOTE | 2022-05-07 04:50 | PC.NURSE ---
To [place], waiting for family to notify of home choice.
== END 2022-05-07 01:46 | disposition expired | DRG 871 ==
LOC: ER 20:15 → ICU 21:45
PROVIDERS: Admitting Provider Family Medicine; Emergency Provider Emergency Medicine; Visit Provider Family Medicine
DX: A41.9 Sepsis, unspecified organism (principal); G93.41 Metabolic encephalopathy; J18.9 Pneumonia, unspecified organism; R65.21 Severe sepsis with septic shock; J96.01 Acute respiratory failure with hypoxia; K72.00 Acute and subacute hepatic failure without coma; I21.4 Non-ST elevation (NSTEMI) myocardial infarction; M62.82 Rhabdomyolysis; E87.2 Acidosis; N17.9 Acute kidney failure, unspecified; I95.9 Hypotension, unspecified; I48.91 Unspecified atrial fibrillation; Z86.73 Personal history of transient ischemic attack (TIA), and cerebral infarction without residual deficits; Z66 Do not resuscitate; I46.9 Cardiac arrest, cause unspecified; Z51.5 Encounter for palliative care
CPT/HCPCS: 36415; 36416; 36600; 51702; 70450; 71045; 71250; 74176; 80053; 81001; 82550; 82803; 82962; 83605; 83880; 84484; 85007; 85025; 85610; 87040; 87077; 87205; 87426; 93005; 94660; 96365; 96367; 96372; 99291; 99292; C9113; J1650; J2060; J2270; J2543; J3370; J3490; J7030; J7050